=== PATIENT | female | born 1965 | race American Indian/Alaskan Native ===

== ENCOUNTER 2017-03-01 12:03 | Emergency (ER) | payer MEDICAID ==
[2017-03-01] MEDS ORDERED: Alum-Mag Hydrox-Simethicone Susp (30 mL) PO STA (13:26)
[2017-03-01] MEDS ORDERED: Alum-Mag Hydrox-Simethicone Susp (30 mL) ONE (13:38)
[2017-03-01 13:49] LABS: BASO # 0.1 K/uL (0.0-0.2); BASO % 1.3 % (0.0-2.0); EOS # 0.1 K/uL (0.0-0.7); EOS % 1.9 % (0.0-4.0); HEMATOCRIT 41.7 % (34.0-47.0); LYMPH # 2.5 K/uL (1.0-4.3); LYMPH % 35.3 % (20.0-40.0); MEAN CELL VOLUME 87.7 fL (81.0-99.0); MEAN CORPUSCULAR HEMOGLOBIN 29.3 pg (27.0-31.0); MEAN CORPUSCULAR HGB CONC 33.5 g/dL (33.0-37.0); MONO # 0.8 K/uL (0.0-0.8); MONO % 10.6 % (0.0-10.0); RED CELL DISTRIBUTION WIDTH 14.1 % (11.5-14.5); WHITE BLOOD COUNT 7.1 K/uL (4.8-10.8)
[2017-03-01 13:54] LABS: RBC URINE 1 /hpf (0-3); URINE BILIRUBIN NEGATIVE (NEGATIVE); URINE BLOOD NEGATIVE (NEGATIVE); URINE COLOR Yellow (YELLOW); URINE GLUCOSE (UA) NORMAL (Normal); URINE KETONE NEGATIVE (NEGATIVE); URINE LEUKOCYTE ESTERASE NEG Leu/uL (Negative); URINE PROTEIN NEGATIVE (NEGATIVE); URINE UROBILINOGEN NORMAL mg/dL (0.2-1.0); WBC URINE 1 /hpf (0-5)
--- NOTE | 2017-03-01 13:56 | RAD ---
HISTORY: cp COMPARISON: None available. TECHNIQUE: Chest PA and lateral FINDINGS: LUNGS: No focal consolidation. Please note that chest x-ray has limited sensitivity for the detection of pulmonary masses. PLEURA: No significant pleural effusion identified. No definite pneumothorax . CARDIOVASCULAR: The cardiomediastinal silhouette appears within normal limits of size. OSSEOUS STRUCTURES: Degenerative changes of the spine. VISUALIZED UPPER ABDOMEN: Unremarkable. OTHER FINDINGS: None. IMPRESSION: No focal consolidation, significant pleural effusion, or definite pneumothorax identified.
[2017-03-01 14:02] LABS: ALKALINE PHOSPHATASE 94 U/L (38-126); ALT/SGPT 33 U/L (9-52); BILIRUBIN,TOTAL 0.2 mg/dL (0.2-1.3); BLOOD UREA NITROGEN 9 mg/dL (7-17); CALCIUM 8.7 mg/dl (8.6-10.4); CARBON DIOXIDE 31 mmol/L (22-30); CHLORIDE 100 mmol/L (98-107); GFR AFRICAN-AMERICAN > 60; GLUCOSE,RANDOM 79 mg/dL (65-105); POTASSIUM 3.3 mmol/L (3.6-5.2); SODIUM 138 mmol/L (132-148); TOTAL PROTEIN 7.4 g/dL (6.3-8.3)
[2017-03-01 14:11] LABS: AST/SGOT 19 U/L (14-36)
--- NOTE | 2017-03-01 14:28 | C.PDOC ---
History Of Present Illness 51 yr old female with complaints of left parasternal discomfort for the past 2 days. Patient states the pain is digitally and positionally reproducible. Patient also reports of burning sensation to substernal with sour taste which wakes her up every night. Patient states she has a glass of water and a piece of dalton which helps. Patient denies history of GERD, fever, chills, SOB, nausea, vomiting, abdominal pain, weakness or numbness. Time Seen by Provider: 03/01/17 13:13 Chief Complaint (Nursing): Chest Pain History Per: Patient History/Exam Limitations: no limitations Onset/Duration Of Symptoms: Days (2) Current Symptoms Are (Timing): Still Present Past Medical History Reviewed: Historical Data, Nursing Documentation, Vital Signs Vital Signs: Last Vital Signs Temp 98.0 F 03/01/17 14:30 Pulse 60 03/01/17 14:30 Resp 18 03/01/17 14:30 BP 134/82 03/01/17 14:30 Pulse Ox 96 03/01/17 16:41 - Medical History PMH: HTN Family History: States: No Known Family Hx - Social History Hx Alcohol Use: No Hx Substance Use: No Review Of Systems Except As Marked, All Systems Reviewed And Found Negative. Constitutional: Negative for: Fever, Chills Cardiovascular: Positive for: Other ((+) Parasternal discomfort. Substernal burning sensation.) Respiratory: Negative for: Shortness of Breath Gastrointestinal: Negative for: Nausea, Vomiting, Abdominal Pain Neurological: Negative for: Weakness, Numbness Physical Exam - Physical Exam Appears: Non-toxic, No Acute Distress, Other ((+) Obese) Skin: Warm, Dry Head: Atraumatic, Normacephalic Chest: Symmetrical, Other ((+) Digitally reproducible left parasternal border.) Cardiovascular: Rhythm Regular, No Murmur Respiratory: Normal Breath Sounds, No Rales, No Rhonchi, No Stridor, No Wheezing Extremity: Normal ROM, No Swelling Neurological/Psych: Oriented x3, Normal Speech, Normal Motor ED Course And Treatment - Laboratory Results Result Diagrams: 03/01/17 13:38 03/01/17 13:38 ECG: Interpreted By Me, Viewed By Me ECG Rhythm: Sinus Rhythm ECG Interpretation: Normal Interpretation Of ECG: Flatten T wave from V3 to V6. Rate From EC (BPM) O2 Sat by Pulse Oximetry: 96 (RA) Pulse Ox Interpretation: Normal - Other Rad CXR X-Ray: Viewed By Me, Read By Radiologist Interpretation: IMPRESSION: No focal consolidation, significant pleural effusion, or definite pneumothorax identified. Medical Decision Making Medical Decision Making: PLAN: * CXR * EKG * Troponin * CBC * CMP * BNP * Urinalysis * Maalox PO * Motrin PO * Pepcid PO NOTE: typical GERD s/s improved with pepcid/maalox ? also mild L parasternal costochondritis though t^ inversions in lateral leads, pt without cardiac s/s and w/u and trop neg. ok to f/u as opt w PMD or our outpatient clinic. Disposition Doctor Will See Patient In The: Office Counseled Patient/Family Regarding: Studies Performed, Diagnosis - Disposition Referrals: Bubba Corey MD [Medical Doctor] - Disposition: HOME/ ROUTINE Disposition Time: 14:29 Condition: GOOD Additional Instructions: Pepcid 20 mg @ night to lower stomach acid Maalox 30 cc (one tablespoon) 4-5x/day for burning chest discomfort c/w GERD Have your PMD refer you to [facility] as needed L chest discomfort- probable Costochondritis motrin as needed Abnormal EKG may be an old finding but no old EKG's here to compare Compare with the EKG @ your PMD's office and refer to Cardiology as needed. Prescriptions: Famotidine [Pepcid] 20 mg PO HS #30 tab Instructions: Costochondritis (ED), Gastroesophageal Reflux Disease (ED) Forms: [facility] (Slovak) - Clinical Impression Clinical Impression: Chest discomfort - Scribe Statement The provider has reviewed the documentation as recorded by the Robb Denson Provider Attestation: All medical record entries made by the Izzyibrodney were at my direction and personally dictated by me. I have reviewed the chart and agree that the record accurately reflects my personal performance of the history, physical exam, medical decision making, and the department course for this patient. I have also personally directed, reviewed, and agree with the discharge instructions and disposition.
[2017-03-01 14:41] VITALS: BP 134/82; PULSE 60; RESP 18; TEMP 98
[2017-03-01 16:34] VITALS: O2SAT 96
--- NOTE | 2017-03-02 10:57 | CARD ---
APPROVED REPORT EKG Measurement Heart [id number] <Conclusion> Normal sinus rhythm ST & T wave abnormality, consider lateral ischemia Abnormal ECG
== END 2017-03-01 14:45 | disposition home or self-care (01) ==
LOC: C.ER 12:03
DX: R07.89 Other chest pain (principal); I10 Essential (primary) hypertension